=== PATIENT | female | born 1965 | race Caucasian/White ===

== ENCOUNTER → 2021-03-20 | Outpatient (CLI) | payer SELFPAY ==
[2021-03-20 19:59] LABS: Microalb/Creat Ratio UR, Rand Unable to Calculate mg/g (0.000-30.000); Microalbumin, Random Urine <5.000 mg/L (0.000-20.000)
== END | disposition home or self-care (01) ==
LOC: LAB SHORT 11:04
PROVIDERS: Physician Assistant
DX: E09.9 Drug or chemical induced diabetes mellitus without complications (principal)
CPT/HCPCS: 82043; 82570

== ENCOUNTER 2021-04-12 08:29 | Emergency (ER) | payer MEDICARE ==
[~2021-04-12] VITALS: Ht 170.2 cm; Wt 113.4 kg
== END 2021-04-12 09:12 | disposition home or self-care (01) ==
LOC: ER 08:29
DX: Z04.1 Encounter for examination and observation following transport accident (principal); V89.2XXA Person injured in unspecified motor-vehicle accident, traffic, initial encounter
CPT/HCPCS: 99282